=== PATIENT | male | born 1985 | race Caucasian/White ===

== ENCOUNTER 2020-09-27 07:47 | Emergency (ER) | payer SELFPAY ==
[~2020-09-27] VITALS: Ht 172.7 cm; Wt 81.6 kg
[2020-09-27 07:49] VITALS: BP 142/68
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
--- NOTE | 2020-09-27 08:00 | NUR ---
DR TYLER AT [facility] EXAMINING PATIENT
[2020-09-27] MEDS ORDERED: IBUPROFEN 400 MG TAB PO ONE (08:10)
--- NOTE | 2020-09-27 08:19 | NUR ---
PATIENT TAKEN TO XRAY VIA WHEELCHAIR
[2020-09-27 08:57] VITALS: BP 142/68
--- NOTE | 2020-09-27 08:57 | NUR ---
Patient discharged with v/s stable. Written and verbal after care instructions given and explained. Patient verbalized understanding. Police with in custody. All questions addressed prior to discharge. Advised to follow up with PMD.
== END 2020-09-27 08:57 ==
LOC: MED 07:47
DX: S00.83XA Contusion of other part of head, initial encounter (principal); S10.91XA Abrasion of unspecified part of neck, initial encounter; S80.812A Abrasion, left lower leg, initial encounter; S80.811A Abrasion, right lower leg, initial encounter; S40.812A Abrasion of left upper arm, initial encounter; S40.811A Abrasion of right upper arm, initial encounter; F10.20 Alcohol dependence, uncomplicated; Y04.2XXA Assault by strike against or bumped into by another person, initial encounter; Y93.89 Activity, other specified; Y92.89 Other specified places as the place of occurrence of the external cause; Y99.8 Other external cause status
CPT/HCPCS: 70150; 90471; 90715; 99283

== ENCOUNTER 2021-06-13 22:22 | Emergency (ER) | payer SELFPAY ==
[~2021-06-13] VITALS: Ht 175.3 cm; Wt 83.9 kg
[2021-06-13 22:30] VITALS: BP 160/92
--- NOTE | 2021-06-13 22:30 | NUR ---
TO [facility] , FOR PREBOOK, [place]O [place]
--- NOTE | 2021-06-14 01:33 | NUR ---
PATIENT BIB [place] [employer]. PATIENT EXAMINED BY DR. HUBBARD. PATIENT MEDICALLY CLEARED AND RELEASED IN CUSTODY IN STABLE CONDITION. ORIGINAL PRE-BOOK FORM GIVEN TO OFFICER [facility], #[id number].
== END 2021-06-14 01:33 ==
LOC: MED 22:22
DX: S00.83XA Contusion of other part of head, initial encounter (principal); S05.11XA Contusion of eyeball and orbital tissues, right eye, initial encounter; S05.12XA Contusion of eyeball and orbital tissues, left eye, initial encounter; S09.90XA Unspecified injury of head, initial encounter; F10.129 Alcohol abuse with intoxication, unspecified; W22.8XXA Striking against or struck by other objects, initial encounter; Y93.89 Activity, other specified; Y92.89 Other specified places as the place of occurrence of the external cause; Y99.8 Other external cause status
CPT/HCPCS: 70450; 70486; 72125; 99285

== ENCOUNTER 2023-07-13 12:07 | Emergency (ER) | payer SELFPAY ==
[~2023-07-13] VITALS: Ht 172.7 cm; Wt 81.6 kg
[2023-07-13 12:10] VITALS: BP 148/98; PULSE 118; RESP 18; TEMP 97.6; O2SAT 99
[2023-07-13 13:10] LABS: BASOPHILS % (AUTO) 0.5 % (0.0-2.0); EOSINOPHILS # (AUTO) 0.2 K/uL (0-0.4); EOSINOPHILS % (AUTO) 2.8 % (0.0-4.0); HEMATOCRIT 50.9 % (36-52); HEMOGLOBIN 17.9 g/dL (12.0-18.0); LYMPHOCYTES # (AUTO) 2.2 K/uL (2.0-11.5); MEAN CORPUSCULAR HEMOGLOBIN 32 pg (27-31); MEAN CORPUSCULAR HGB CONC 35 g/dL (33-37); MEAN CORPUSCULAR VOLUME 89.6 fL (80-94); MONOCYTES # (AUTO) 0.6 K/uL (0.8-1.0); MONOCYTES % (AUTO) 7.4 % (1.7-9.3); NEUTROPHILS # (AUTO) 4.7 K/uL (1.8-7.7); NEUTROPHILS % (AUTO) 61.3 % (42.2-75.2); PLATELET COUNT (AUTO) 271 K/uL (140-450); RED BLOOD CELL COUNT(AUTO) 5.68 MIL/uL (4.20-6.10); RED CELL DISTRIBUTION WIDTH 14.2 % (11.6-13.7); WHITE BLOOD COUNT (AUTO) 7.7 K/uL (4.8-10.8)
[2023-07-13 13:20] LABS: ANION GAP 15.2 (8-16); CALCIUM 8.4 mg/dL (8.5-10.1); CARBON DIOXIDE 27.3 mmol/L (21-32); CREATININE 1.2 mg/dL (0.6-1.3); POTASSIUM 3.5 mmol/L (3.5-5.1)
[2023-07-13 14:10] VITALS: BP 137/84; PULSE 104; RESP 16; TEMP 98; O2SAT 99
== END 2023-07-13 14:20 | disposition home or self-care (01) ==
LOC: MED 12:07
DX: S05.32XA Ocular laceration without prolapse or loss of intraocular tissue, left eye, initial encounter (principal); F10.129 Alcohol abuse with intoxication, unspecified; Y90.9 Presence of alcohol in blood, level not specified; X58.XXXA Exposure to other specified factors, initial encounter; Y93.89 Activity, other specified; Y92.89 Other specified places as the place of occurrence of the external cause; Y99.8 Other external cause status
CPT/HCPCS: 12011; 36415; 80048; 85025; 90471; 90715; 99283; G0482